=== PATIENT | female | born 1995 | race Caucasian/White ===

== ENCOUNTER 2017-03-04 16:45 | Emergency (ER) | payer BC ==
[~2017-03-04] VITALS: Ht 167.6 cm; Wt 93.4 kg
[2017-03-04] MEDS ORDERED: ONDANSETRON 2MG/ML, 2ML ONE (17:21)
[2017-03-04] MEDS ORDERED: FAMOTIDINE 20 MG/2 ML ONE (17:21)
[2017-03-04] MEDS ORDERED: SODIUM CHLORIDE 0.9% 1,000ML IVBOLUS ONE (17:30)
[2017-03-04] MEDS ORDERED: ONDANSETRON 2MG/ML, 2ML IVPush ONE (17:30)
[2017-03-04] MEDS ORDERED: SODIUM CHLORIDE FLUSH 10ML SYR IVF ONE (17:30)
[2017-03-04] MEDS ORDERED: FAMOTIDINE 20 MG/2 ML IVP ONE (17:30)
[2017-03-04 17:41] LABS: ASPARTATE AMINO TRANSFERASE 17 U/L (15-37); BLOOD UREA NITROGEN 8 mg/dL (7-18)
[2017-03-04 19:37] VITALS: BP 129/80
== END 2017-03-04 19:39 | disposition home or self-care (01) ==
LOC: ED 17:38
DX: R11.2 Nausea with vomiting, unspecified (principal); R19.7 Diarrhea, unspecified; R10.84 Generalized abdominal pain; Z87.891 Personal history of nicotine dependence
CPT/HCPCS: 36415; 80053; 81003; 83690; 84703; 85025; 96361; 96374; 96375; 99285; J2405; J7030; S0028

== ENCOUNTER 2017-05-04 14:27 | Emergency (ER) | payer BC ==
[~2017-05-04] VITALS: Ht 167.6 cm; Wt 98.4 kg
[2017-05-04 14:33] VITALS: BP 131/83
== END 2017-05-04 15:43 | disposition home or self-care (01) ==
LOC: ED 15:37
DX: S01.01XD Laceration without foreign body of scalp, subsequent encounter (principal); F17.210 Nicotine dependence, cigarettes, uncomplicated
CPT/HCPCS: 99281

== ENCOUNTER 2018-04-28 11:12 | Inpatient (IN) | payer BC ==
[~2018-04-28] VITALS: Ht 167.6 cm; Wt 107.0 kg
[~2018-04-28 11:12] MED LIST: POLY17PO5 PO
[2018-04-28] MEDS ORDERED: SODIUM CHLORIDE FLUSH 10ML SYR IVF ONE (11:30)
[2018-04-28 12:05] LABS: BASOPHILS # (AUTO) 0.02 x10^3/uL (0-0.1); BASOPHILS % (AUTO) 0 % (0-1); EOSINOPHILS # (AUTO) 0.09 x10^3/uL (0-0.4); EOSINOPHILS % (AUTO) 1 % (1-7); LYMPHOCYTES % (AUTO) 29 % (22-44); MD NO; MEAN CORPUSCULAR HEMOGLOBIN 31.9 pg (27.0-34.8); MEAN CORPUSCULAR HGB CONC 34.1 g/dL (32.4-35.8); MEAN CORPUSCULAR VOLUME 93.7 fL (80-100); MEAN PLATELET VOLUME 8.1 fL (7.4-10.4); MONOCYTES # (AUTO) 0.49 x10^3/uL (0.2-0.8); MONOCYTES % (AUTO) 5 % (2-9); NEUTROPHILS % (AUTO) 65 % (42-75); PLATELET COUNT 275 x10^3/uL (130-400); RED BLOOD COUNT 4.81 x10^6/uL (3.82-5.3); RED CELL DISTRIBUTION WIDTH 12.4 % (9.6-15.2)
[2018-04-28 12:17] LABS: ANION GAP 8 mmol/L (5-15); CALCIUM 8.9 mg/dL (8.5-10.1); CHLORIDE 105 mmol/L (98-107)
[2018-04-28 12:23] LABS: ALANINE AMINOTRANSFERASE 29 U/L (12-78); ALKALINE PHOSPHATASE 96 U/L (45-117); BILIRUBIN,TOTAL 0.5 mg/dL (0.2-1.0); CREATININE 1.01 mg/dL (0.55-1.02); TOTAL PROTEIN 8.1 g/dL (6.4-8.2)
[2018-04-28 13:16] LABS: MICROSCOPIC NOT IND
[2018-04-28 13:21] LABS: CULTURE INDICATED? NO
[2018-04-28] MEDS ORDERED: ONDANSETRON ODT 4 MG ONE (13:21)
[2018-04-28] MEDS ORDERED: SODIUM CHLORIDE 0.9% 1,000ML IVBOLUS ONE (13:30)
[2018-04-28] MEDS ORDERED: MORPHINE SULFATE 4 MG/ML, 1ML IVPush ONE (14:00)
[2018-04-28] MEDS ORDERED: ONDANSETRON ODT 4 MG PO ONE (14:00)
[2018-04-28] MEDS ORDERED: MORPHINE SULFATE 4 MG/ML, 1ML ONE (14:29)
[2018-04-28] MEDS ORDERED: ONDANSETRON 2MG/ML, 2ML IVPush PRN (16:00)
[2018-04-28] MEDS ORDERED: PROMETHAZINE 25 MG/ML, 1ML IM PRN (16:00)
[2018-04-28 19:21] LABS: AMPHETAMINE SCREEN, URINE Negative (Negative); BARBITURATE SCREEN, URINE Negative (Negative); BENZODIAZEPINE SCREEN, URINE Negative (Negative); CANNABINOID SCREEN, URINE Negative (Negative); COCAINE SCREEN, URINE Negative (Negative); METHADONE SCREEN, URINE Negative (Negative); OPIATE SCREEN, URINE Negative (Negative)
[2018-04-28 20:04] VITALS: BP 116/75
[2018-04-28] MEDS: morphine SULFATE 10 MG/ML, 1ML IVPush PRN (20:45)
[2018-04-28] MEDS: ONDANSETRON ODT 4 MG PO PRN (20:45)
[2018-04-28] MEDS: D5%-0.45% NACL 1,000 ML IV SCH (20:45)
[2018-04-28] MEDS: HEPARIN 5,000 UNITS/ML, 1ML SQ SCH (20:45)
[2018-04-28] MEDS: NICOTINE 7 MG/24 HR PATCH.TD24 TD SCH (20:45)
[2018-04-29 02:17] VITALS: BP 97/64
[2018-04-29] MEDS: morphine SULFATE 10 MG/ML, 1ML IVPush PRN ×4 (04:00→19:06)
[2018-04-29] MEDS: HEPARIN 5,000 UNITS/ML, 1ML SQ SCH ×3 (05:28→23:29)
[2018-04-29] MEDS: D5%-0.45% NACL 1,000 ML IV SCH ×2 (05:30→15:43)
[2018-04-29 06:18] LABS: BASOPHILS # (AUTO) 0.03 x10^3/uL (0-0.1); BASOPHILS % (AUTO) 0 % (0-1); EOSINOPHILS # (AUTO) 0.11 x10^3/uL (0-0.4); EOSINOPHILS % (AUTO) 1 % (1-7); LYMPHOCYTES # (AUTO) 3.22 x10^3/uL (1-3.4); LYMPHOCYTES % (AUTO) 40 % (22-44); MD NO; MEAN CORPUSCULAR HGB CONC 34.6 g/dL (32.4-35.8); MEAN CORPUSCULAR VOLUME 92.5 fL (80-100); MONOCYTES # (AUTO) 0.65 x10^3/uL (0.2-0.8); MONOCYTES % (AUTO) 8 % (2-9); NEUTROPHILS # (AUTO) 4.14 x10^3/uL (1.8-6.8); NEUTROPHILS % (AUTO) 51 % (42-75); PLATELET COUNT 225 x10^3/uL (130-400); RED BLOOD COUNT 4.16 x10^6/uL (3.82-5.3); RED CELL DISTRIBUTION WIDTH 12.4 % (9.6-15.2)
[2018-04-29 06:20] LABS: ALANINE AMINOTRANSFERASE 22 U/L (12-78); ANION GAP 7 mmol/L (5-15); CALCIUM 8.1 mg/dL (8.5-10.1); CHLORIDE 107 mmol/L (98-107); CREATININE 0.94 mg/dL (0.55-1.02)
[2018-04-29 06:30] LABS: ALKALINE PHOSPHATASE 76 U/L (45-117); BILIRUBIN,TOTAL 0.6 mg/dL (0.2-1.0); TOTAL PROTEIN 6.3 g/dL (6.4-8.2)
[2018-04-29 08:35] VITALS: BP 114/77
[2018-04-29 14:51] VITALS: BP 128/84
[2018-04-29] MEDS: NICOTINE 7 MG/24 HR PATCH.TD24 TD SCH (15:43)
[2018-04-29 18:44] VITALS: BP 105/69
[2018-04-29] MEDS: ONDANSETRON ODT 4 MG PO PRN (19:01)
[2018-04-30] MEDS: morphine SULFATE 10 MG/ML, 1ML IVPush PRN ×4 (00:14→19:42)
[2018-04-30] MEDS: D5%-0.45% NACL 1,000 ML IV SCH ×2 (01:00→09:06)
[2018-04-30 01:20] VITALS: BP 116/77
[2018-04-30] MEDS: HEPARIN 5,000 UNITS/ML, 1ML SQ SCH ×3 (07:00→19:46)
[2018-04-30 08:34] VITALS: BP 111/74
[2018-04-30 13:40] LABS: ALBUMIN 3.6 g/dL (3.4-5.0); BILIRUBIN, DIRECT 0.1 mg/dL (0.1-0.2)
[2018-04-30 13:42] LABS: BILIRUBIN,INDIRECT 0.3 mg/dL (0.0-2.0); BILIRUBIN,TOTAL 0.4 mg/dL (0.2-1.0); TOTAL PROTEIN 7.2 g/dL (6.4-8.2)
[2018-04-30 13:55] VITALS: BP 120/76
[2018-04-30] MEDS: ONDANSETRON ODT 4 MG PO PRN (14:02)
[2018-04-30] MEDS: NICOTINE 7 MG/24 HR PATCH.TD24 TD SCH (15:48)
[2018-04-30] MEDS ORDERED: OMNIPAQUE 350 MG/ML, 100ML BOTTLE ONE (16:24)
[2018-04-30] MEDS ORDERED: MORPHINE SULFATE 4 MG/ML, 1ML ONE (19:38)
[2018-04-30 20:27] VITALS: BP 105/68
[2018-05-01] MEDS ORDERED: MORPHINE SULFATE 4 MG/ML, 1ML ONE (02:23)
[2018-05-01] MEDS: D5%-0.45% NACL 1,000 ML IV SCH ×2 (02:26→13:00)
[2018-05-01] MEDS: morphine SULFATE 10 MG/ML, 1ML IVPush PRN ×4 (02:26→22:14)
[2018-05-01 03:10] VITALS: BP 96/61
[2018-05-01 05:19] LABS: BASOPHILS # (AUTO) 0.02 x10^3/uL (0-0.1); BASOPHILS % (AUTO) 0 % (0-1); EOSINOPHILS # (AUTO) 0.11 x10^3/uL (0-0.4); EOSINOPHILS % (AUTO) 1 % (1-7); LYMPHOCYTES # (AUTO) 2.43 x10^3/uL (1-3.4); LYMPHOCYTES % (AUTO) 32 % (22-44); MD NO; MEAN CORPUSCULAR HEMOGLOBIN 31.6 pg (27.0-34.8); MEAN CORPUSCULAR VOLUME 92.9 fL (80-100); MONOCYTES # (AUTO) 0.56 x10^3/uL (0.2-0.8); MONOCYTES % (AUTO) 7 % (2-9); NEUTROPHILS # (AUTO) 4.57 x10^3/uL (1.8-6.8); NEUTROPHILS % (AUTO) 59 % (42-75); PLATELET COUNT 230 x10^3/uL (130-400); RED BLOOD COUNT 4.25 x10^6/uL (3.82-5.3); RED CELL DISTRIBUTION WIDTH 12.5 % (9.6-15.2)
[2018-05-01 05:31] LABS: CHLORIDE 108 mmol/L (98-107)
[2018-05-01 05:35] LABS: ANION GAP 10 mmol/L (5-15); CALCIUM 8.6 mg/dL (8.5-10.1); CREATININE 0.91 mg/dL (0.55-1.02)
[2018-05-01 08:35] VITALS: BP 114/73
[2018-05-01] MEDS ORDERED: SINCALIDE (KINEVAC) 5 MCG ONE (11:51)
[2018-05-01] MEDS: HEPARIN 5,000 UNITS/ML, 1ML SQ SCH ×2 (13:00→22:15)
[2018-05-01 13:05] VITALS: BP 120/79
[2018-05-01] MEDS: NICOTINE 7 MG/24 HR PATCH.TD24 TD SCH (16:00)
[2018-05-01 20:23] VITALS: BP 106/69
[2018-05-01] MEDS: ONDANSETRON ODT 4 MG PO PRN (22:14)
[2018-05-02] MEDS: NICOTINE 7 MG/24 HR PATCH.TD24 TD SCH (00:24)
[2018-05-02] MEDS: D5%-0.45% NACL 1,000 ML IV SCH ×2 (00:25→12:13)
[2018-05-02] MEDS: morphine SULFATE 10 MG/ML, 1ML IVPush PRN ×2 (01:29→05:47)
[2018-05-02 01:35] VITALS: BP 100/65
[2018-05-02 04:45] LABS: BASOPHILS # (AUTO) 0.03 x10^3/uL (0-0.1); BASOPHILS % (AUTO) 0 % (0-1); EOSINOPHILS # (AUTO) 0.15 x10^3/uL (0-0.4); EOSINOPHILS % (AUTO) 2 % (1-7); LYMPHOCYTES % (AUTO) 35 % (22-44); MD NO; MEAN CORPUSCULAR HEMOGLOBIN 31.5 pg (27.0-34.8); MEAN CORPUSCULAR VOLUME 92.8 fL (80-100); MEAN PLATELET VOLUME 7.9 fL (7.4-10.4); MONOCYTES # (AUTO) 0.69 x10^3/uL (0.2-0.8); MONOCYTES % (AUTO) 8 % (2-9); NEUTROPHILS # (AUTO) 4.99 x10^3/uL (1.8-6.8); NEUTROPHILS % (AUTO) 56 % (42-75); PLATELET COUNT 215 x10^3/uL (130-400); RED BLOOD COUNT 4.33 x10^6/uL (3.82-5.3); RED CELL DISTRIBUTION WIDTH 12.5 % (9.6-15.2)
[2018-05-02 05:01] LABS: CHLORIDE 107 mmol/L (98-107)
[2018-05-02 05:08] LABS: ALANINE AMINOTRANSFERASE 38 U/L (12-78); ALBUMIN 3.1 g/dL (3.4-5.0); ALKALINE PHOSPHATASE 77 U/L (45-117); ANION GAP 9 mmol/L (5-15); BILIRUBIN,TOTAL 0.4 mg/dL (0.2-1.0); CALCIUM 8.7 mg/dL (8.5-10.1); CREATININE 0.96 mg/dL (0.55-1.02); TOTAL PROTEIN 6.4 g/dL (6.4-8.2)
[2018-05-02] MEDS: HEPARIN 5,000 UNITS/ML, 1ML SQ SCH ×3 (05:42→20:31)
[2018-05-02] MEDS ORDERED: IBUPROFEN 200 MG TABLET PO PRN (08:30)
[2018-05-02] MEDS ORDERED: BISACODYL 10 MG SUPP PR PRN (09:00)
[2018-05-02 09:04] VITALS: BP 118/78
[2018-05-02] MEDS: DOCUSATE 100 MG CAPSULE PO SCH ×2 (09:27→21:17)
[2018-05-02] MEDS: POLYETHYLENE GLYCOL 17 GM PACKET NG SCH (09:27)
[2018-05-02] MEDS: HYDROcodone/APAP 5/325 TABLET PO PRN ×3 (09:27→21:17)
[2018-05-02] MEDS: METOCLOPRAMIDE 5 MG/ML, 2ML IVPush SCH ×3 (09:28→20:28)
[2018-05-02 13:10] LABS: HCT (SEDRATE) 41.1 % (34.6-47.8)
[2018-05-02 14:59] VITALS: BP 110/68
[2018-05-02] MEDS ORDERED: MOVIPREP POWDER 1 PREP KIT PO ONE (17:00)
[2018-05-02] MEDS: ONDANSETRON ODT 4 MG PO PRN ×2 (17:10→21:14)
[2018-05-02 20:10] VITALS: BP 118/79
[2018-05-03] MEDS: NICOTINE 7 MG/24 HR PATCH.TD24 TD SCH (00:10)
[2018-05-03] MEDS: HYDROcodone/APAP 5/325 TABLET PO PRN (01:27)
[2018-05-03 02:11] VITALS: BP 108/70
[2018-05-03] MEDS: HEPARIN 5,000 UNITS/ML, 1ML SQ SCH ×2 (04:43→12:41)
[2018-05-03] MEDS: METOCLOPRAMIDE 5 MG/ML, 2ML IVPush SCH (04:44)
[2018-05-03 07:10] VITALS: BP 106/66
[2018-05-03] MEDS: DOCUSATE 100 MG CAPSULE PO SCH (07:20)
[2018-05-03] MEDS: POLYETHYLENE GLYCOL 17 GM PACKET NG SCH (07:20)
[2018-05-03] MEDS ORDERED: DEXAMETHASONE 4 MG/ML, 1ML ONE (10:33)
[2018-05-03] MEDS ORDERED: PROPOFOL 10 MG/ML, 20ML ONE (10:33)
[2018-05-03] MEDS ORDERED: ONDANSETRON 2MG/ML, 2ML ONE (10:33)
[2018-05-03] MEDS ORDERED: LORazepam 2 MG/ML, 1ML IVPush PRN (11:30)
[2018-05-03] MEDS ORDERED: ONDANSETRON ODT 8 MG PO PRN (11:30)
[2018-05-03] MEDS ORDERED: HYDROmorphone 1 MG/ML, 1ML IV PRN (11:30)
[2018-05-03] MEDS ORDERED: MEPERIDINE/PF 25MG/0.5ML IVPush PRN (11:30)
[2018-05-03] MEDS ORDERED: LABETALOL 5MG/ML, 20ML IV PRN (11:30)
[2018-05-03] MEDS ORDERED: MIDAZOLAM 1 MG/ML, 2ML IV PRN (11:30)
[2018-05-03] MEDS ORDERED: PROMETHAZINE 12.5 MG SUPP PR PRN (11:30)
[2018-05-03] MEDS ORDERED: OXYcodone 5 MG/5 ML ORAL.SOL UDC PO PRN (11:30)
[2018-05-03] MEDS ORDERED: MORPHINE SULFATE 4 MG/ML, 1ML IVPush PRN (11:30)
[2018-05-03] MEDS ORDERED: HALOPERIDOL 5 MG/ML IV PRN (11:30)
[2018-05-03] MEDS ORDERED: FENTANYL PF 100 MCG/2ML IV PRN (11:30)
[2018-05-03] MEDS ORDERED: PROMETHAZINE 25 MG/ML, 1ML IV PRN (11:30)
[2018-05-03] MEDS ORDERED: EPHEDRINE 50 MG/ML, 1ML IVPush PRN (11:30)
[2018-05-03] MEDS ORDERED: hydrALAzine 20 MG/ML, 1ML IV PRN (11:30)
[2018-05-03] MEDS ORDERED: ALBUTEROL SULFATE 2.5 MG/3 ML NPPB PRN (11:30)
[2018-05-03] MEDS ORDERED: ONDANSETRON 2MG/ML, 2ML IV PRN (11:30)
[2018-05-03] MEDS: D5%-0.45% NACL 1,000 ML IV SCH (12:42)
[2018-05-03 14:00] VITALS: BP 106/68
[2018-05-03] MEDS ORDERED: OMEPRAZOLE 20 MG CAPSULE.DR PO SCH (17:00)
[2018-05-03 18:30] VITALS: BP 131/79
== END 2018-05-03 20:00 | disposition home or self-care (01) | DRG 392 ==
LOC: ED 15:07 → 3NE 15:08 → ED 15:41
PROVIDERS: ADMIT Internal Medicine; ATTEND Internal Medicine
PROC: 0DB68ZX Excision of Stomach, Via Natural or Artificial Opening Endoscopic, Diagnostic (ICD-10-PCS; principal; 2018-04-28)
PROC: 0DJD8ZZ Inspection of Lower Intestinal Tract, Via Natural or Artificial Opening Endoscopic (ICD-10-PCS; 2018-04-28)
DX: K59.00 Constipation, unspecified (principal); K22.10 Ulcer of esophagus without bleeding; E66.9 Obesity, unspecified; K29.70 Gastritis, unspecified, without bleeding; F17.210 Nicotine dependence, cigarettes, uncomplicated; K76.0 Fatty (change of) liver, not elsewhere classified; N80.9 Endometriosis, unspecified; Z68.31 Body mass index [BMI] 31.0-31.9, adult; Z82.49 Family history of ischemic heart disease and other diseases of the circulatory system; Z86.19 Personal history of other infectious and parasitic diseases; Z98.891 History of uterine scar from previous surgery
CPT/HCPCS: 36415; 74018; 74022; 74177; 74250; 78227; 80048; 80053; 80076; 80307; 81003; 83690; 84443; 84703; 85025; 85651; 86038; 86140; 87491; 87591; 88305; 96361; 96365; 99285; G0378; J1100; J1644; J2405; J2704; Q0162; Q9967; A9537; C9898; J2270; J2765; J2805; J7030

== ENCOUNTER 2018-08-11 18:54 | Observation (INO) | payer BC ==
[~2018-08-11] VITALS: Ht 167.6 cm; Wt 104.6 kg
[2018-08-11 19:37] LABS: BASOPHILS # (AUTO) 0.04 x10^3/uL (0-0.1); BASOPHILS % (AUTO) 0 % (0-1); EOSINOPHILS # (AUTO) 0.13 x10^3/uL (0-0.4); EOSINOPHILS % (AUTO) 1 % (1-7); LYMPHOCYTES % (AUTO) 29 % (22-44); MD NO; MEAN CORPUSCULAR HEMOGLOBIN 31.4 pg (27.0-34.8); MEAN CORPUSCULAR HGB CONC 33.7 g/dL (32.4-35.8); MEAN CORPUSCULAR VOLUME 93.2 fL (80-100); MONOCYTES # (AUTO) 0.63 x10^3/uL (0.2-0.8); MONOCYTES % (AUTO) 5 % (2-9); NEUTROPHILS # (AUTO) 7.42 x10^3/uL (1.8-6.8); NEUTROPHILS % (AUTO) 64 % (42-75); PLATELET COUNT 265 x10^3/uL (130-400); RED BLOOD COUNT 4.86 x10^6/uL (3.82-5.3); RED CELL DISTRIBUTION WIDTH 12.6 % (9.6-15.2)
[2018-08-11 19:50] LABS: ALANINE AMINOTRANSFERASE 30 U/L (12-78); ALBUMIN 3.7 g/dL (3.4-5.0); ANION GAP 7 mmol/L (5-15); CALCIUM 8.8 mg/dL (8.5-10.1); CHLORIDE 109 mmol/L (98-107); CREATININE 0.96 mg/dL (0.55-1.02)
[2018-08-11 19:52] LABS: ALKALINE PHOSPHATASE 101 U/L (45-117); BILIRUBIN,TOTAL 0.3 mg/dL (0.2-1.0); TOTAL PROTEIN 7.7 g/dL (6.4-8.2)
[2018-08-11 20:09] LABS: CULTURE INDICATED? NO; MICROSCOPIC NOT IND
[2018-08-11] MEDS ORDERED: ONDANSETRON 2MG/ML, 2ML ONE (22:26)
[2018-08-11] MEDS ORDERED: MORPHINE SULFATE 4 MG/ML, 1ML ONE (22:27)
[2018-08-11] MEDS ORDERED: MORPHINE SULFATE 4 MG/ML, 1ML IVPush PRN (22:30)
[2018-08-11] MEDS ORDERED: ONDANSETRON 2MG/ML, 2ML IVPush ONE (22:30)
--- NOTE | 2018-08-11 22:39 | NUR ---
PT ARRIVES TO ED WITH C/O OF ABD BLOATING AND FOR 6 DAYS WITH ABD PAIN. PT DENIES ANY EMESIS OR DIARRHEA. BUT DOES REPORT NAUSEA. PT HAS DIFFUSE ABD TENDERNESS. PT CONNECTED TO MONITORS, CALL LIGHT IN REACH AND PIV AND MEDICATED PER EMAR.
[2018-08-11] MEDS ORDERED: OMNIPAQUE 350 MG/ML, 100ML BOTTLE ONE (22:49)
--- NOTE | 2018-08-11 23:00 | NUR ---
pt reporting improved pain control.
--- NOTE | 2018-08-11 23:55 | NUR ---
pt reporting pain with po challenge. Pt reports feeling like she is nauseiated. VSS
--- NOTE | 2018-08-12 00:03 | NUR ---
REPORT TO DAVID GAMEZ
[2018-08-12] MEDS ORDERED: ONDANSETRON 2MG/ML, 2ML ONE (00:14)
[2018-08-12] MEDS ORDERED: HYDROmorphone 2 MG/ML, 1ML ONE (00:14)
--- NOTE | 2018-08-12 00:24 | NUR ---
PT MEDICATED FOR PAIN AND NAUSEA PER EMAR
[2018-08-12] MEDS ORDERED: ONDANSETRON 2MG/ML, 2ML IVPush ONE (00:30)
[2018-08-12] MEDS ORDERED: HYDROmorphone 1 MG/ML, 1ML IV ONE (00:30)
--- NOTE | 2018-08-12 01:06 | NUR ---
THIS RN WENT INTO ROOM TO DC PT, PT STATED "THE DOCTOR TOLD ME I COULD THINK ABOUT STAYING AND I THINK STAYING WOULD BE BEST AND NOT SENT HOME." DR. PALMER NOTIFIED.
--- NOTE | 2018-08-12 02:15 | NUR ---
REPORT GIVEN TO VERA AGEE
[2018-08-12] MEDS ORDERED: IBUP-1484 PO (03:03)
[2018-08-12 03:30] VITALS: BP 113/76
[2018-08-12] MEDS ORDERED: ONDANSETRON ODT 4 MG PO PRN (05:00)
[2018-08-12] MEDS ORDERED: DICYCLOMINE 20 MG TABLET PO ONE (05:00)
[2018-08-12] MEDS ORDERED: ONDANSETRON 2MG/ML, 2ML IVPush PRN (05:00)
[2018-08-12] MEDS ORDERED: POLYETHYLENE GLYCOL 17 GM PACKET PO PRN (05:00)
[2018-08-12] MEDS: SODIUM CHLORIDE 0.9% 1,000 ML IV SCH ×2 (05:28→15:04)
[2018-08-12] MEDS: morphine SULFATE 10 MG/ML, 1ML IVPush PRN ×4 (05:36→20:36)
[2018-08-12] MEDS: ENOXAPARIN 40 MG/0.4 ML SQ SCH (07:48)
[2018-08-12 08:39] VITALS: BP 100/59
[2018-08-12] MEDS: DICYCLOMINE 20 MG TABLET PO SCH ×3 (11:22→20:36)
[2018-08-12 12:56] VITALS: BP 107/69
[2018-08-12] MEDS: ACETAMINOPHEN 325 MG TABLET PO PRN (15:04)
[2018-08-12 20:34] VITALS: BP 105/66
[2018-08-13] MEDS: SODIUM CHLORIDE 0.9% 1,000 ML IV SCH ×2 (01:26→10:33)
[2018-08-13] MEDS: morphine SULFATE 10 MG/ML, 1ML IVPush PRN ×3 (01:32→09:54)
[2018-08-13 02:43] VITALS: BP 104/68
[2018-08-13] MEDS: DICYCLOMINE 20 MG TABLET PO SCH ×3 (06:10→15:45)
[2018-08-13 07:49] VITALS: BP 106/72
[2018-08-13] MEDS: ENOXAPARIN 40 MG/0.4 ML SQ SCH (08:56)
[2018-08-13] MEDS: ACETAMINOPHEN 325 MG TABLET PO PRN (09:01)
[2018-08-13] MEDS ORDERED: METOCLOPRAMIDE 5 MG/ML, 2ML IVPush PRN (10:30)
[2018-08-13] MEDS: METOCLOPRAMIDE 5 MG/ML, 2ML IVPush SCH ×2 (11:54→15:40)
[2018-08-13 13:17] VITALS: BP 104/66
== END 2018-08-13 19:00 | disposition home or self-care (01) ==
LOC: ED 08-12 00:06 → INTOOBSV 08-12 01:10 → EDIP 08-12 01:10 → 4NOR 08-12 02:37
PROVIDERS: ADMIT Hospitalist; ATTEND Hospitalist
DX: R10.9 Unspecified abdominal pain (principal); R11.0 Nausea; F17.210 Nicotine dependence, cigarettes, uncomplicated; Z82.49 Family history of ischemic heart disease and other diseases of the circulatory system
CPT/HCPCS: 36415; 74022; 74177; 80053; 81003; 81025; 83690; 85025; 96372; 96374; 96375; 96376; 99285; G0378; J1170; J1650; J2270; J2405; J2765; J7030; Q0162; Q9967

== ENCOUNTER 2018-12-09 20:36 | Emergency (ER) | payer BC ==
[~2018-12-09] VITALS: Ht 167.6 cm; Wt 98.6 kg
[~2018-12-09 20:36] MED LIST changes: +IBUP-1484 PO
--- NOTE | 2018-12-09 20:53 | NUR ---
RLQ ABD PAIN SINCE THIS AM, SHARP. LMP 6 OF NOVEMBER. monitors applied, siderails up x2, call light within reach
--- NOTE | 2018-12-09 20:54 | NUR ---
pt up to rr, provided pt with urine cup
--- NOTE | 2018-12-09 20:59 | NUR ---
PT TO ULTRASOUND, URINE SAMPLE TAKEN TO LAB
[2018-12-09 21:13] LABS: MICROSCOPIC NOT IND
[2018-12-09 21:18] LABS: CULTURE INDICATED? NO
[2018-12-09] MEDS ORDERED: HYDROcodone/APAP 5/325 TABLET PO ONE (21:30)
[2018-12-09] MEDS ORDERED: METOCLOPRAMIDE 10MG TABLET PO ONE (21:30)
[2018-12-09] MEDS ORDERED: METOCLOPRAMIDE 10MG TABLET ONE (21:41)
[2018-12-09] MEDS ORDERED: HYDROcodone/APAP 5/325 TABLET ONE (21:42)
[2018-12-09 21:43] LABS: BASOPHILS # (AUTO) 0.05 x10^3/uL (0-0.1); BASOPHILS % (AUTO) 0 % (0-1); EOSINOPHILS # (AUTO) 0.17 x10^3/uL (0-0.4); EOSINOPHILS % (AUTO) 1 % (1-7); LYMPHOCYTES # (AUTO) 3.76 x10^3/uL (1-3.4); LYMPHOCYTES % (AUTO) 32 % (22-44); MD NO; MEAN CORPUSCULAR HEMOGLOBIN 31.8 pg (27.0-34.8); MEAN CORPUSCULAR HGB CONC 34.7 g/dL (32.4-35.8); MEAN CORPUSCULAR VOLUME 91.9 fL (80-100); MEAN PLATELET VOLUME 8.3 fL (7.4-10.4); MONOCYTES # (AUTO) 0.83 x10^3/uL (0.2-0.8); MONOCYTES % (AUTO) 7 % (2-9); NEUTROPHILS # (AUTO) 6.91 x10^3/uL (1.8-6.8); NEUTROPHILS % (AUTO) 59 % (42-75); PLATELET COUNT 254 x10^3/uL (130-400); RED BLOOD COUNT 4.49 x10^6/uL (3.82-5.3); RED CELL DISTRIBUTION WIDTH 12.6 % (9.6-15.2)
[2018-12-09 21:45] LABS: ALANINE AMINOTRANSFERASE 23 U/L (12-78); ALBUMIN 3.6 g/dL (3.4-5.0); ANION GAP 5 mmol/L (5-15); CALCIUM 8.8 mg/dL (8.5-10.1); CHLORIDE 110 mmol/L (98-107)
[2018-12-09 21:49] LABS: ALKALINE PHOSPHATASE 96 U/L (45-117); BILIRUBIN,TOTAL 0.2 mg/dL (0.2-1.0); TOTAL PROTEIN 6.9 g/dL (6.4-8.2)
--- NOTE | 2018-12-09 21:49 | NUR ---
PT MEDICATED PER MAR. AWAITING LAB RESULTS
[2018-12-09 22:53] VITALS: BP 132/81
--- NOTE | 2018-12-09 23:02 | NUR ---
PT RESTING ON [facility], MONITORS IN PLACE, CALL LIGHT WITHIN REACH, CHART UP FOR RECHECK
== END 2018-12-09 23:17 | disposition home or self-care (01) ==
LOC: ED 22:03
DX: R10.31 Right lower quadrant pain (principal); F17.200 Nicotine dependence, unspecified, uncomplicated
CPT/HCPCS: 36415; 76830; 80053; 81003; 83690; 84703; 85025; 99284

== ENCOUNTER 2019-02-19 09:23 | Outpatient (CLI) | payer BC | END 2019-02-19 23:59 | disposition home or self-care (01) | LOC: CFH 09:23 | PROVIDERS: ATTEND Physician Assistant | DX: N63.10 Unspecified lump in the right breast, unspecified quadrant (principal); Z63.0 Problems in relationship with spouse or partner; Z80.3 Family history of malignant neoplasm of breast | CPT/HCPCS: 76642 ==

== ENCOUNTER 2019-03-24 10:51 | Emergency (ER) | payer BC ==
[~2019-03-24] VITALS: Ht 167.6 cm; Wt 98.0 kg
[2019-03-24 14:34] VITALS: BP 113/76
== END 2019-03-24 14:54 | disposition home or self-care (01) ==
LOC: ED 13:45
DX: N94.6 Dysmenorrhea, unspecified (principal); R10.31 Right lower quadrant pain; R10.32 Left lower quadrant pain; F17.200 Nicotine dependence, unspecified, uncomplicated
CPT/HCPCS: 36415; 76830; 80053; 81001; 84703; 85025; 99284; Q0162

== ENCOUNTER 2019-09-23 14:16 | Emergency (ER) | payer BC ==
[~2019-09-23] VITALS: Ht 167.6 cm; Wt 90.8 kg
[~2019-09-23 14:16] MED LIST changes: -IBUP-1484 PO; +IBUP-1902 PO; +PRENATAL VITAMINS
[2019-09-23 14:32] VITALS: BP 143/85
[2019-09-23 14:54] LABS: BASOPHILS # (AUTO) 0.01 x10^3/uL (0-0.1); BASOPHILS % (AUTO) 0 % (0-1); EOSINOPHILS # (AUTO) 0.15 x10^3/uL (0-0.4); EOSINOPHILS % (AUTO) 1 % (1-7); LYMPHOCYTES # (AUTO) 2.85 x10^3/uL (1-3.4); LYMPHOCYTES % (AUTO) 27 % (22-44); MD NO; MEAN CORPUSCULAR HEMOGLOBIN 31.9 pg (27.0-34.8); MEAN CORPUSCULAR HGB CONC 33.9 g/dL (32.4-35.8); MEAN CORPUSCULAR VOLUME 93.9 fL (80-100); MEAN PLATELET VOLUME 8.2 fL (7.4-10.4); MONOCYTES # (AUTO) 0.51 x10^3/uL (0.2-0.8); MONOCYTES % (AUTO) 5 % (2-9); NEUTROPHILS % (AUTO) 67 % (42-75); PLATELET COUNT 259 x10^3/uL (130-400); RED BLOOD COUNT 4.39 x10^6/uL (3.82-5.3); RED CELL DISTRIBUTION WIDTH 12.3 % (9.6-15.2)
[2019-09-23 14:58] LABS: ALBUMIN 3.6 g/dL (3.4-5.0); ANION GAP 6 mmol/L (5-15); CALCIUM 8.7 mg/dL (8.5-10.1); CHLORIDE 108 mmol/L (98-107)
--- NOTE | 2019-09-23 15:04 | NUR ---
BAG SHAKER: PT HAS TO LEAVE TO INSTRUCTION DEAN CHILD
[2019-09-23 15:05] LABS: ALANINE AMINOTRANSFERASE 20 U/L (12-78); ALKALINE PHOSPHATASE 91 U/L (45-117); BILIRUBIN,TOTAL 0.4 mg/dL (0.2-1.0); CREATININE 0.94 mg/dL (0.55-1.02); TOTAL PROTEIN 7.2 g/dL (6.4-8.2)
--- NOTE | 2019-09-23 15:13 | NUR ---
Patient signed out AMA. AMA form stickered and placed in medical records box.
== END 2019-09-23 15:16 | disposition left against medical advice (07) ==
LOC: ED 15:10
DX: R10.31 Right lower quadrant pain (principal); Z53.21 Procedure and treatment not carried out due to patient leaving prior to being seen by health care provider
CPT/HCPCS: 36415; 80053; 84703; 85025; 99283

== ENCOUNTER 2019-09-23 21:36 | Emergency (ER) | payer BC ==
[~2019-09-23] VITALS: Ht 167.6 cm; Wt 91.3 kg
--- NOTE | 2019-09-23 21:57 | NUR ---
PLANT ACCOUNTANT: PT WALKED BACK FROM LOBBY TO ROOM AT THIS TIME. STEADY UPON AMBULATION.
--- NOTE | 2019-09-23 22:08 | NUR ---
MD AT BEDSIDE TO ASSESS PT
--- NOTE | 2019-09-23 22:10 | NUR ---
THIS IS A 24Y F THAT COMES IN FOR ABD PAIN AND DISTENTION X1WK. PT HAS HX OF SBO AND STS IT FEELS THE SAME. SHE STS LAST WEEK HER ABDOMEN WAS FLAT AND NOW IT IS ROUND AND BLOATED. PT DENIES RECENT MEDICATION/ DIET CHANGES. PT STS SHE HAS INTENSE PAIN WITH URINATION. PT CONNECTED TO MONITORING, ALV[facility] YIP
--- NOTE | 2019-09-23 22:16 | NUR ---
URINE SENT TO LAB
[2019-09-23] MEDS ORDERED: ONDANSETRON 2MG/ML, 2ML IVPush ONE (22:30)
[2019-09-23] MEDS ORDERED: ONDANSETRON 2MG/ML, 2ML ONE (22:46)
[2019-09-23] MEDS ORDERED: MORPHINE SULFATE 4 MG/ML, 1ML ONE (22:47)
[2019-09-23 23:04] LABS: MICROSCOPIC INDICATED
[2019-09-23] MEDS: MORPHINE SULFATE 4 MG/ML, 1ML IVPush PRN (23:09)
[2019-09-23 23:12] LABS: CULTURE INDICATED? YES
--- NOTE | 2019-09-23 23:21 | NUR ---
PT MEDICATED PER OCT, PIV STARTED. AWAITING CT
--- NOTE | 2019-09-23 23:23 | NUR ---
PT TO CT AT THIS TIME
[2019-09-23] MEDS ORDERED: OMNIPAQUE 350 MG/ML, 100ML BOTTLE ONE (23:35)
--- NOTE | 2019-09-23 23:36 | NUR ---
PT BACK FROM CT AT THIS TIME
--- NOTE | 2019-09-23 23:49 | NUR ---
PT REPORTS HX OF GALLBLADDER PROBLEMS AND HAD A CONSULT FOR REMOVAL BUT DID NOT FOLLOW UP. MD TO BE UPDATED.
--- NOTE | 2019-09-24 00:44 | NUR ---
PT PROVIDED WITH WATER TO SEE HOW SHE WILL TOLERATE PO FLUIDS.
[2019-09-24] MEDS ORDERED: ONDANSETRON 2MG/ML, 2ML ONE (00:51)
[2019-09-24] MEDS ORDERED: MORPHINE SULFATE 4 MG/ML, 1ML ONE (00:55)
[2019-09-24] MEDS: MORPHINE SULFATE 4 MG/ML, 1ML IVPush PRN (00:58)
[2019-09-24] MEDS ORDERED: ONDANSETRON 2MG/ML, 2ML IVPush ONE (01:00)
--- NOTE | 2019-09-24 01:02 | NUR ---
PT MEDICATED PER OCT FOR PAIN AND NAUSEA. PT RESTING ON RIGHT SIDE ON GURNEY LIGHTS DIMMED.
[2019-09-24] MEDS ORDERED: HYDROmorphone 1 MG/ML, 1ML INJ ONE ×2 (01:56→04:43)
--- NOTE | 2019-09-24 02:02 | NUR ---
PT C/O 7/10PAIN WITH MINIMAL IMPROVEMENT WITH MORPHINE, UPDATED ADDITIONAL ORDERS AT THIS TIME.
[2019-09-24] MEDS ORDERED: HYDROmorphone 1 MG/ML, 1ML INJ IVPush PRN (02:30)
[2019-09-24] MEDS ORDERED: DIPHENHYDRAMINE 25 MG CAPSULE PO ONE (03:00)
[2019-09-24] MEDS ORDERED: PROCHLORPERAZINE 5 MG/ML, 2ML ONE (03:00)
[2019-09-24] MEDS ORDERED: PROCHLORPERAZINE 5 MG/ML, 2ML IVPush ONE (03:00)
[2019-09-24] MEDS ORDERED: DIPHENHYDRAMINE 25 MG CAPSULE ONE (03:01)
--- NOTE | 2019-09-24 03:07 | NUR ---
PT MEDICATED PER MAR
--- NOTE | 2019-09-24 03:38 | NUR ---
PT AMB TO RESTROOM WITH ONE PERSON ASSIST.
[2019-09-24] MEDS ORDERED: HYDROmorphone 1 MG/ML, 1ML INJ IV ONE (04:30)
[2019-09-24 04:57] VITALS: BP 113/62
== END 2019-09-24 05:01 | disposition home or self-care (01) ==
LOC: ED 09-24 01:57
DX: R10.32 Left lower quadrant pain (principal); R10.31 Right lower quadrant pain; F17.200 Nicotine dependence, unspecified, uncomplicated
CPT/HCPCS: 74177; 81001; 87086; 96374; 96375; 96376; 99285; J0780; J1170; J2270; J2405; Q0163; Q9967

== ENCOUNTER 2020-04-05 14:34 | Emergency (ER) | payer BC, OTHER ==
[~2020-04-05] VITALS: Ht 167.6 cm; Wt 85.6 kg
--- NOTE | 2020-04-05 15:09 | NUR ---
PT TO ROOM FROM LOBBY
--- NOTE | 2020-04-05 15:39 | NUR ---
UA ORDERED/SENT TO LAB. PT PLACED ON BP CUFF, PULSE OX. WARM BLANKET PROVIDED. SANITARY PADS, MATERNITY UNDERPANTS, AND SOCKS PROVIDED PER REQUEST. CALL LIGHT WITHIN REACH.
[2020-04-05 16:06] LABS: MICROSCOPIC AUTO
--- NOTE | 2020-04-05 17:05 | NUR ---
PT REQ PAIN MEDICINE, ERP NOTIFIED.
[2020-04-05] MEDS ORDERED: HYDROcodone/APAP 5/325 TABLET ONE (17:11)
--- NOTE | 2020-04-05 17:15 | NUR ---
POC REVIEWED WITH PT. PT GIVEN NORCO PER ERP ORDER FOR 03/13 RLQ PAIN. CONTINUE TO AWAIT LAB RESULTS. CALL LIGHT WITHIN REACH.
[2020-04-05 17:16] VITALS: BP 122/68
[2020-04-05 17:20] LABS: BASOPHILS # (AUTO) 0.05 x10^3/uL (0-0.1); BASOPHILS % (AUTO) 1 % (0-1); EOSINOPHILS # (AUTO) 0.14 x10^3/uL (0-0.4); EOSINOPHILS % (AUTO) 1 % (1-7); LYMPHOCYTES # (AUTO) 3.49 x10^3/uL (1-3.4); LYMPHOCYTES % (AUTO) 34 % (22-44); MD NO; MEAN CORPUSCULAR HEMOGLOBIN 31.8 pg (27.0-34.8); MEAN CORPUSCULAR HGB CONC 33.6 g/dL (32.4-35.8); MEAN CORPUSCULAR VOLUME 94.5 fL (80-100); MEAN PLATELET VOLUME 7.8 fL (7.4-10.4); MONOCYTES # (AUTO) 0.66 x10^3/uL (0.2-0.8); MONOCYTES % (AUTO) 6 % (2-9); NEUTROPHILS # (AUTO) 5.91 x10^3/uL (1.8-6.8); NEUTROPHILS % (AUTO) 58 % (42-75); PLATELET COUNT 237 x10^3/uL (130-400); RED BLOOD COUNT 4.44 x10^6/uL (3.82-5.3); RED CELL DISTRIBUTION WIDTH 12.8 % (9.6-15.2)
[2020-04-05 17:28] LABS: ALBUMIN 3.5 g/dL (3.4-5.0); ANION GAP 5 mmol/L (5-15); CALCIUM 9.4 mg/dL (8.5-10.1); CHLORIDE 108 mmol/L (98-107)
[2020-04-05] MEDS ORDERED: HYDROcodone/APAP 5/325 TABLET PO ONE (17:30)
[2020-04-05 17:34] LABS: ALANINE AMINOTRANSFERASE 24 U/L (12-78); ALKALINE PHOSPHATASE 86 U/L (45-117); BILIRUBIN,TOTAL 0.2 mg/dL (0.2-1.0)
--- NOTE | 2020-04-05 17:59 | NUR ---
ALL RESULTS BACK,PT FOR RECHECK
--- NOTE | 2020-04-05 18:30 | NUR ---
ASSIST PA WITH PELVIC, SPECIMENS WALKED TO LAB
[2020-04-05] MEDS ORDERED: IBUPROFEN 600 MG TABLET PO ONE (19:00)
--- NOTE | 2020-04-05 19:19 | NUR ---
REPORT FROM VERA ESCOBEDO. PT CARE RESPNSIBILITIES ASSUMED.
[2020-04-05 19:21] LABS: CLUE CELLS NONE SEEN (NONE SEEN)
[2020-04-05 19:22] LABS: WET PREP WBCS FEW (FEW)
--- NOTE | 2020-04-05 19:28 | NUR ---
REPORT TO ITZ GAMEZ.
[2020-04-05] MEDS ORDERED: IBUPROFEN 600 MG TABLET ONE (19:33)
== END 2020-04-05 20:12 | disposition home or self-care (01) ==
LOC: ED 15:15
DX: N93.8 Other specified abnormal uterine and vaginal bleeding (principal); N83.01 Follicular cyst of right ovary
CPT/HCPCS: 36415; 76830; 80053; 81001; 84703; 85025; 87210; 87491; 87591; 87808; 99284

== ENCOUNTER 2020-04-24 11:50 | Emergency (ER) | payer BC ==
[~2020-04-24] VITALS: Ht 167.6 cm; Wt 88.1 kg
[2020-04-24 13:40] LABS: MICROSCOPIC AUTO
[2020-04-24 14:30] LABS: BASOPHILS # (AUTO) 0.04 x10^3/uL (0-0.1); BASOPHILS % (AUTO) 0 % (0-1); EOSINOPHILS # (AUTO) 0.13 x10^3/uL (0-0.4); EOSINOPHILS % (AUTO) 1 % (1-7); LYMPHOCYTES # (AUTO) 3.35 x10^3/uL (1-3.4); LYMPHOCYTES % (AUTO) 33 % (22-44); MD NO; MEAN CORPUSCULAR HGB CONC 33.8 g/dL (32.4-35.8); MEAN CORPUSCULAR VOLUME 94.7 fL (80-100); MEAN PLATELET VOLUME 7.9 fL (7.4-10.4); MONOCYTES # (AUTO) 0.88 x10^3/uL (0.2-0.8); MONOCYTES % (AUTO) 9 % (2-9); NEUTROPHILS # (AUTO) 5.92 x10^3/uL (1.8-6.8); NEUTROPHILS % (AUTO) 57 % (42-75); PLATELET COUNT 254 x10^3/uL (130-400); RED CELL DISTRIBUTION WIDTH 13.1 % (9.6-15.2)
[2020-04-24 14:34] LABS: ALBUMIN 3.4 g/dL (3.4-5.0); ANION GAP 6 mmol/L (5-15); CALCIUM 9.1 mg/dL (8.5-10.1); CHLORIDE 110 mmol/L (98-107); CREATININE 0.83 mg/dL (0.55-1.02)
[2020-04-24] MEDS ORDERED: ONDANSETRON 2MG/ML, 2ML ONE (14:43)
[2020-04-24] MEDS ORDERED: HYDROmorphone 2 MG/ML, 1ML ONE (14:43)
[2020-04-24] MEDS: HYDROmorphone 2 MG/ML, 1ML IVPush PRN ×2 (14:51→15:41)
--- NOTE | 2020-04-24 14:52 | NUR ---
TASK RN: PT C/O LOWER ABD PAIN, MEDICATED PER MAR.
[2020-04-24] MEDS ORDERED: ONDANSETRON 2MG/ML, 2ML IVPush ONE (15:00)
[2020-04-24 15:35] VITALS: BP 129/79
== END 2020-04-24 15:45 | disposition home or self-care (01) ==
LOC: ED 14:29
DX: N93.8 Other specified abnormal uterine and vaginal bleeding (principal); Z78.0 Asymptomatic menopausal state; R94.31 Abnormal electrocardiogram [ECG] [EKG]
CPT/HCPCS: 36415; 76830; 80048; 81001; 82040; 84702; 85025; 86901; 93005; 96374; 96375; 96376; 99285; J1170; J2405

== ENCOUNTER 2020-07-25 13:45 | Emergency (ER) | payer BC ==
[~2020-07-25] VITALS: Ht 167.6 cm; Wt 90.8 kg
--- NOTE | 2020-07-25 14:11 | NUR ---
PT REPORTS 10/10 PAIN ON RIGHT SIDE AND AND RIGHT FLANK X1 WEEK. DENIES N/V/D. PT STATES "MY DOG JUMPED ON MY STOMACH AND MADE IT WORSE TODAY". PT RESTING IN [place] AT THIS TIME, MONITORING IN PLACE. PT REPORTS NO NEEDS AT THIS TIME, WILL CONTINUE TO MONITOR.
[2020-07-25] MEDS ORDERED: SODIUM CHLORIDE FLUSH 10ML SYR IVF ONE (14:30)
[2020-07-25] MEDS ORDERED: ONDANSETRON 2MG/ML, 2ML IVPush ONE (14:30)
[2020-07-25 14:39] LABS: MICROSCOPIC NOT IND
[2020-07-25] MEDS ORDERED: ONDANSETRON 2MG/ML, 2ML ONE (14:41)
[2020-07-25] MEDS ORDERED: MORPHINE SULFATE 4 MG/ML, 1ML ONE ×2 (14:42→16:01)
[2020-07-25] MEDS: MORPHINE SULFATE 4 MG/ML, 1ML IVPush PRN ×2 (15:25→16:16)
[2020-07-25 15:32] LABS: BASOPHILS % (AUTO) 1 % (0-1); EOSINOPHILS % (AUTO) 1 % (1-7); LYMPHOCYTES % (AUTO) 34 % (22-44); MEAN CORPUSCULAR HEMOGLOBIN 32.1 pg (27.0-34.8); MEAN CORPUSCULAR HGB CONC 34.3 g/dL (32.4-35.8); MEAN PLATELET VOLUME 7.6 fL (7.4-10.4); MONOCYTES % (AUTO) 7 % (2-9); NEUTROPHILS % (AUTO) 56 % (42-75); PLATELET COUNT 253 x10^3/uL (130-400); RED BLOOD COUNT 4.45 x10^6/uL (3.82-5.3); RED CELL DISTRIBUTION WIDTH 12.5 % (9.6-15.2)
[2020-07-25 15:34] LABS: MD NO
[2020-07-25 15:40] LABS: ALANINE AMINOTRANSFERASE 19 U/L (12-78); ALBUMIN 3.9 g/dL (3.4-5.0); ANION GAP 3 mmol/L (5-15); CALCIUM 8.9 mg/dL (8.5-10.1); CHLORIDE 110 mmol/L (98-107); CREATININE 1.03 mg/dL (0.55-1.02)
[2020-07-25 15:45] LABS: ALKALINE PHOSPHATASE 83 U/L (45-117); BILIRUBIN,TOTAL 0.5 mg/dL (0.2-1.0); TOTAL PROTEIN 7.5 g/dL (6.4-8.2)
[2020-07-25] MEDS ORDERED: OMNIPAQUE 350 MG/ML, 100ML BOTTLE ONE (17:09)
[2020-07-25] MEDS ORDERED: KETOROLAC 30 MG/1 ML ONE (17:33)
[2020-07-25] MEDS ORDERED: HYDROcodone/APAP 5/325 TABLET ONE (17:37)
[2020-07-25 17:52] VITALS: BP 127/85
[2020-07-25] MEDS ORDERED: HYDROcodone/APAP 5/325 TABLET PO ONE (18:00)
== END 2020-07-25 17:53 | disposition home or self-care (01) ==
LOC: ED 17:45
DX: N83.291 Other ovarian cyst, right side (principal); R10.2 Pelvic and perineal pain; F17.200 Nicotine dependence, unspecified, uncomplicated
CPT/HCPCS: 36415; 74177; 76830; 80053; 81003; 84703; 85025; 96374; 96375; 96376; 99285; J2270; J2405; Q9967

== ENCOUNTER 2020-09-12 08:20 | Emergency (ER) | payer BC ==
[~2020-09-12] VITALS: Ht 167.6 cm; Wt 89.3 kg
[2020-09-12 09:26] LABS: BASOPHILS % (AUTO) 1 % (0-1); EOSINOPHILS % (AUTO) 2 % (1-7); LYMPHOCYTES % (AUTO) 34 % (22-44); MEAN CORPUSCULAR HGB CONC 34.5 g/dL (32.4-35.8); MEAN PLATELET VOLUME 7.7 fL (7.4-10.4); MONOCYTES % (AUTO) 8 % (2-9); NEUTROPHILS % (AUTO) 56 % (42-75); PLATELET COUNT 282 x10^3/uL (130-400); RED BLOOD COUNT 4.16 x10^6/uL (3.82-5.3); RED CELL DISTRIBUTION WIDTH 12.3 % (9.6-15.2)
[2020-09-12 09:27] LABS: ALBUMIN 3.7 g/dL (3.4-5.0); ANION GAP 4 mmol/L (5-15); CALCIUM 8.9 mg/dL (8.5-10.1); CHLORIDE 109 mmol/L (98-107)
[2020-09-12 09:29] LABS: MD NO
[2020-09-12 09:32] LABS: CREATININE 0.95 mg/dL (0.55-1.02)
--- NOTE | 2020-09-12 09:45 | NUR ---
PT RETURNED FROM US
--- NOTE | 2020-09-12 10:00 | NUR ---
PT UPRIGHT ON GURNEY AWAKE & WATCHING TV, RESPONDS APPROP TO STAFF, NAD, COMFORT MEASURES PROVIDED, VISITOR AT BS, CALL LIGHT WITHIN REACH.
[2020-09-12 10:55] VITALS: BP 111/72
--- NOTE | 2020-09-12 10:58 | NUR ---
pt resting in bed comfortably. family supportive at bedside.
--- NOTE | 2020-09-12 11:28 | NUR ---
Patient/Caregiver given discharge instructions and they have confirmed that they understand the instructions. Patient ambulatory with steady gait.
== END 2020-09-12 11:29 | disposition home or self-care (01) ==
LOC: ED 10:43
DX: N93.8 Other specified abnormal uterine and vaginal bleeding (principal); R10.9 Unspecified abdominal pain; R42 Dizziness and giddiness
CPT/HCPCS: 36415; 76830; 80048; 82040; 84703; 85025; 99284

== ENCOUNTER 2020-10-24 20:50 | Emergency (ER) | payer BC ==
[~2020-10-24] VITALS: Ht 167.6 cm; Wt 93.1 kg
--- NOTE | 2020-10-24 21:40 | NUR ---
pt states about a week ago syumptoms began. chest pains have been ibncreasing since. reports yesterday chest pain becoming extremely worse. sob and chest pain today and tingling and numbess down left arm. complaints of nausea. pain feels like stabbing and tight.
[2020-10-24 21:51] VITALS: BP 127/83
[2020-10-24] MEDS ORDERED: ACETAMINOPHEN 500 MG TABLET PO ONE (22:00)
[2020-10-24] MEDS ORDERED: ACETAMINOPHEN 500 MG TABLET ONE (22:09)
--- NOTE | 2020-10-24 22:14 | NUR ---
PT LYING IN BED. CONNECTED TO NIBP, SPO2, AND SOCIAL WORKER PALLIATIVE CARE. CALL LIGHT IN REACH
[2020-10-24 22:42] LABS: BASOPHILS % (AUTO) 1 % (0-1); EOSINOPHILS % (AUTO) 1 % (1-7); LYMPHOCYTES % (AUTO) 40 % (22-44); MEAN CORPUSCULAR HEMOGLOBIN 31.3 pg (27.0-34.8); MEAN CORPUSCULAR HGB CONC 33.7 g/dL (32.4-35.8); MEAN PLATELET VOLUME 7.8 fL (7.4-10.4); MONOCYTES % (AUTO) 8 % (2-9); NEUTROPHILS % (AUTO) 50 % (42-75); PLATELET COUNT 244 x10^3/uL (130-400); RED BLOOD COUNT 4.39 x10^6/uL (3.82-5.3)
[2020-10-24 22:47] LABS: MD NO
[2020-10-24 22:50] LABS: ALBUMIN 3.6 g/dL (3.4-5.0); ANION GAP 5 mmol/L (5-15); CALCIUM 8.6 mg/dL (8.5-10.1); CHLORIDE 109 mmol/L (98-107); CREATININE 0.83 mg/dL (0.55-1.02)
[2020-10-24 22:54] LABS: TROPONIN I < 0.015 ng/mL (0.000-0.045)
--- NOTE | 2020-10-24 23:09 | NUR ---
GAVE REPORT TO KALANI GAMEZ
[2020-10-24] MEDS ORDERED: IBUPROFEN 200 MG TABLET PO ONE (23:30)
== END 2020-10-24 23:51 | disposition home or self-care (01) ==
LOC: ED 21:38
DX: R07.1 Chest pain on breathing (principal); R06.02 Shortness of breath; R11.0 Nausea; R94.31 Abnormal electrocardiogram [ECG] [EKG]; F17.210 Nicotine dependence, cigarettes, uncomplicated
CPT/HCPCS: 36415; 71045; 80048; 82040; 84484; 84703; 85025; 85379; 93005; 99285; 99406

== ENCOUNTER 2021-03-20 07:55 | Emergency (ER) | payer BC ==
[~2021-03-20] VITALS: Ht 167.6 cm; Wt 92.5 kg
--- NOTE | 2021-03-20 08:46 | NUR ---
SKILLS TRAINER: URINE COLLECTED AND SENT TO LAB
[2021-03-20 08:53] LABS: MICROSCOPIC NOT IND
[2021-03-20] MEDS ORDERED: SODIUM CHLORIDE FLUSH 10ML SYR IVF ONE (09:30)
[2021-03-20 09:31] LABS: BASOPHILS % (AUTO) 1 % (0-1); EOSINOPHILS % (AUTO) 1 % (1-7); LYMPHOCYTES % (AUTO) 27 % (22-44); MEAN CORPUSCULAR HEMOGLOBIN 31.6 pg (27.0-34.8); MEAN CORPUSCULAR HGB CONC 33.6 g/dL (32.4-35.8); MEAN PLATELET VOLUME 7.4 fL (7.4-10.4); MONOCYTES % (AUTO) 7 % (2-9); NEUTROPHILS % (AUTO) 64 % (42-75); PLATELET COUNT 254 x10^3/uL (130-400); RED BLOOD COUNT 4.57 x10^6/uL (3.82-5.3); RED CELL DISTRIBUTION WIDTH 12.8 % (9.6-15.2)
[2021-03-20 09:44] LABS: ALANINE AMINOTRANSFERASE 21 U/L (12-78); ALBUMIN 3.6 g/dL (3.4-5.0); ANION GAP 5 mmol/L (5-15); CHLORIDE 109 mmol/L (98-107); CREATININE 0.82 mg/dL (0.55-1.02)
[2021-03-20 09:49] LABS: ALKALINE PHOSPHATASE 89 U/L (45-117); BILIRUBIN,TOTAL 0.4 mg/dL (0.2-1.0); TOTAL PROTEIN 7.3 g/dL (6.4-8.2)
[2021-03-20] MEDS ORDERED: MORPHINE SULFATE 4 MG/ML, 1ML IVPush PRN (10:30)
[2021-03-20] MEDS ORDERED: ONDANSETRON 2MG/ML, 2ML IVPush ONE (10:30)
[2021-03-20] MEDS ORDERED: MORPHINE SULFATE 4 MG/ML, 1ML ONE (10:33)
[2021-03-20] MEDS ORDERED: ONDANSETRON 2MG/ML, 2ML ONE (10:33)
[2021-03-20] MEDS ORDERED: MAALOX/HYOSCYAMINE/LIDOCAINE 45 ML BTL ONE (10:45)
[2021-03-20] MEDS ORDERED: MAALOX/HYOSCYAMINE/LIDOCAINE 45 ML BTL PO ONE (11:00)
[2021-03-20 11:09] VITALS: BP 122/74
[2021-03-20] MEDS ORDERED: OMNIPAQUE 350 MG/ML, 100ML BOTTLE ONE (11:45)
== END 2021-03-20 11:13 | disposition home or self-care (01) ==
LOC: ED 10:52
DX: R10.13 Epigastric pain (principal); R10.12 Left upper quadrant pain; F17.200 Nicotine dependence, unspecified, uncomplicated
CPT/HCPCS: 36415; 74177; 80053; 81003; 83690; 84703; 85025; 96374; 96375; 99285; J2270; J2405; Q9967